=== PATIENT | male | born 1965 | race African-American/Black ===

== ENCOUNTER 2019-02-02 02:28 | Emergency (ER) | payer MEDICARE ==
[~2019-02-02] VITALS: Ht 182.9 cm; Wt 74.8 kg
--- NOTE | 2019-02-02 02:30 | NUR ---
ED Nurse Note: pt walked out from [facility], called 911, CHUCK RA 826 c/o headache. Patient uncooperative. ao3. nad.
--- NOTE | 2019-02-02 02:37 | NUR ---
ED Nurse Note: registration desk contacted [facility] for pt packet. per Melbeta they will fax it.
--- NOTE | 2019-02-02 02:40 | NUR ---
ED Nurse Note: per ermd order, escorted pt to smoke.
[2019-02-02] MEDS ORDERED: Acetaminophen 500mg (ES) tab ORAL ONE (02:45)
--- NOTE | 2019-02-02 02:45 | NUR ---
ED Nurse Note: packet received from [facility]
--- NOTE | 2019-02-02 02:49 | Emergency Room Report ---
History of Present Illness General Chief Complaint: Headache Source: Patient Present Illness [facility] This is a 53-year-old male with a history of schizoaffective disorder and hypertension. He presents with chief complaint of headache. He left the halfway called 911. Here he said his blood pressure was elevated. He also complaining of headache because of the side and from the influence. No nausea no vomiting. He said he felt better now. Wants to go to smoke. Denies any other complaint. Allergies: Coded Allergies: LITHIUM (Unverified Allergy, Unknown, 02/02/19) Patient History Past Medical History: see triage record, old chart reviewed, HTN, psych hx Past Surgical History: none Pertinent Family History: none Social History: Reports: smoking Immunizations: other Reviewed Nursing Documentation: PMH: Agreed; PSxH: Agreed Nursing Documentation-PMH Past Medical History: No History, Except For Review of Systems Eye: Denies: eye pain, blurred vision ENT: Denies: ear pain, nose congestion, throat swelling Respiratory: Denies: cough, shortness of breath Cardiovascular: Denies: chest pain, palpitations Gastrointestinal: Denies: abdominal pain, diarrhea, nausea, vomiting Musculoskeletal: Denies: back pain, joint pain Skin: Denies: rash Psychiatric: Reports: prior hx Neurological: Reports: headache; Denies: numbness Endocrine: Denies: increased thirst, increased urine Hematologic/Lymphatic: Denies: easy bruising All Other Systems: negative except mentioned in HPI Physical Exam Vital Signs Date Time Temp Pulse Resp B/P (MAP) Pulse Ox O2 Delivery O2 Flow Rate FiO2 02/02/19 02:22 98.2 98 18 96 Room Air vitals with mild hypertension Sp02 EP Interpretation: reviewed, normal General Appearance: well appearing, no apparent distress, alert Head: normocephalic, atraumatic Eyes: bilateral eye PERRL, bilateral eye EOMI ENT: hearing grossly normal, normal pharynx Neck: full range of motion, supple, no meningismus Respiratory: chest non-tender, lungs clear, normal breath sounds Cardiovascular #1: regular rate, rhythm, no murmur Gastrointestinal: normal bowel sounds, non tender, no mass, no organomegaly, no bruit, non-distended Musculoskeletal: back normal, gait/station normal, normal range of motion Psychiatric: other - Flat affect Skin: warm/dry Medical Decision Making Diagnostic Impression: Primary Impression: Headache Qualified Codes: G44.209 - Tension-type headache, unspecified, not intractable ER Course Patient with headache and high blood pressure. Otherwise stable. No evidence of meningitis, sepsis, bleed. No evidence of endorgan damage. Patient main concern is to go outside to smoke. We'll send him back to halfway. Last Vital Signs Date Time Temp Pulse Resp B/P (MAP) Pulse Ox O2 Delivery O2 Flow Rate FiO2 02/02/19 02:22 98.2 98 18 96 Room Air Status: improved Disposition: XFER SNF Condition: Stable Patient Instructions: Tension Headache Additional Instructions: Take your blood pressure medication and psychiatric medication. Follow-up with your doctor in 7 days. Return if worse. Good Guzman MD February 02, 2019 02:49
--- NOTE | 2019-02-02 03:00 | NUR ---
ED Nurse Note: RETURNED FROM BREAK, RESUMED CARE, PT IS IN ROOM SITTING ON BED, AAKE, ALERT AND ORIENTED X 4, HERE WITH C/O HEADACHE, PT ELOPED FROM FACILITY BECAUSE HE STATED HE WANTED TO SMOKE, PT WAS ALLOWD TO SMOKE HERE AND IS MORE CALM AND COOPERATIVE, PT REQUIRES FREQUENT RE-DIRECTIONS AND ORIENTATION, WILL CONTINUE TO CLOSELY MONITOR AND D/C PT BACK TO FACILITY IN AM, PT DENIES HEADACHE, CP, SOB, OR ANY PHYSICAL COMPLAINTS TO ME.
[2019-02-02 03:01] VITALS: BP 140/86
[2019-02-02] MEDS ORDERED: ATORVASTATIN CA20 MG ORAL (03:01)
[2019-02-02] MEDS ORDERED: ASPIRIN EC81 MG ORAL (03:01)
[2019-02-02] MEDS ORDERED: FLOMAX0.4 MG ORAL (03:01)
[2019-02-02] MEDS ORDERED: NORVASC5 MG ORAL (03:01)
[2019-02-02] MEDS ORDERED: BENZTROPINE ME0.5 MG PO (03:01)
[2019-02-02] MEDS ORDERED: LISINOPRIL5 MG ORAL (03:01)
[2019-02-02 04:15] VITALS: BP 134/81
--- NOTE | 2019-02-02 04:15 | NUR ---
ED Nurse Note: [facility] HAS ARRIVED FOR PT TRANSPORT BACK TO [facility], PLACED CALL AGAIN TO FACILITY AT [phone], INFORMED LISET OF PT 'S ARRIVAL, PT IS LEAVING AWAKE, ALERT AND ORIENTED X 4, PT DENIES PAIN AND STATES HEADACHE RESOLVED, PT IS CALM AND COOPERATIVE, AMBULATORY WITH STEDYA GAIT, NO SOB OR LABORED BREATHING, ARMBAND REMOVED, NAD NOTED DURING PT TRANSPORT BACK TO FACILITY.
[2019-02-02 04:34] VITALS: BP 134/81
== END 2019-02-02 04:36 ==
LOC: EDBD 02:28 → EMR 02:50
DX: G44.209 Tension-type headache, unspecified, not intractable (principal); F25.9 Schizoaffective disorder, unspecified; I10 Essential (primary) hypertension; F17.210 Nicotine dependence, cigarettes, uncomplicated; Z88.8 Allergy status to other drugs, medicaments and biological substances
CPT/HCPCS: 99282